=== PATIENT | male | born 1960 | race Caucasian/White ===

== ENCOUNTER 2017-02-04 21:38 | Emergency (ER) | payer BC ==
[~2017-02-04] VITALS: Ht 177.8 cm; Wt 82.6 kg
--- NOTE | 2017-02-04 22:59 | PHYS DOC ---
Adult General Chief Complaint Chief Complaint: UPPER EXTREMITY PAIN HPI HPI Patient is a 56 year old male who presents with elbow pain & swelling. He states he has several day history of painful swelling over the posterior elbow. Today he accidentally hit his arm against equipment at work & has increased pain to proximal forearm. No fevers/chills, elbow erythema/warmth/swelling. He is right handed. 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 Review of Systems Review of Systems Constitutional: Denies fever or chills HENT: Denies nasal congestion or sore throat Respiratory: Denies cough or shortness of breath Cardiovascular: Denies chest pain GI: Denies abdominal pain, nausea, vomiting Musculoskeletal: Reports elbow pain & swelling. Integument: Denies rash Neurologic: Denies headache Physical Exam Physical Exam Constitutional: Well developed, well nourished, no acute distress, non-toxic appearance. HENT: Normocephalic, atraumatic, bilateral external ears normal, oropharynx moist, nose normal. Eyes: conjunctiva normal, no discharge. Cardiovascular: no edema. Lungs & Thorax: no respiratory distress. Abdomen: nondistended. Skin: Warm, dry, no erythema, no rash. Extremities: right elbow swelling of olecranon bursa without erythema/warmth/ swelling, normal ROM to elbow with flexion & extension, no focal bony tenderness of elbow, generalized tenderness to proximal forearm without swelling /deformity, radial pulse 2+, radial/median/ulnar nerve sensory & motor function intact. Neurologic: Alert and oriented X 3 EKG EKG [] Radiology/Procedures Radiology/Procedures right elbow XR: interpreted by me: no fracture, soft tissue swelling.[] Course & Med Decision Making Course & Med Decision Making Pertinent Labs and Imaging studies reviewed. (See chart for details) The patient presents with elbow pain & swelling. Exam demonstrates olecranon bursitis. He requested XR due to injury. This was negative for fracture. Recommend rest, ice, compression with SONALI wrap, ibuprofen for pain/swelling. Follow up as needed with primary care or ortho in 1-2 weeks. Come back for neurovascular compromise, septic joint, otherwise worsening condition. Discharged home in stable condition. [] Dragon Disclaimer Dragon Disclaimer This chart was dictated in whole or in part using Voice Recognition software in a busy, high-work load, and often noisy Emergency Department environment. It may contain unintended and wholly unrecognized errors or omissions. Departure Departure: Impression: Primary Impression: Bursitis of elbow Disposition: 01 HOME, SELF-CARE Condition: STABLE Referrals: LINK VEGA APRN (PCP) [facility] Patient Instructions: Olecranon Bursitis, [id number] Additional Instructions: You were seen in the emergency department today for elbow pain & swelling. You don't have a broken bone but you do have bursitis. Please rest, ice, elevate, apply sonali wrap bandage. Take ibuprofen or tylenol for pain. Follow up with orthopedic surgery in 1 week if not improving. Come back for hot/red/swollen joint, any otherwise worsening condition. RUPAL ESTEVEZ MD Feb 04, 2017 22:59
[2017-02-04 23:20] VITALS: BP 110/79
--- NOTE | 2017-02-05 10:20 | RAD ---
Indication swelling. AP oblique and lateral views of the right elbow were obtained. An acute bony finding is not seen. A small spur is noted off the olecranon. There is soft tissue swelling over the olecranon suggesting bursitis. IMPRESSION: No acute bony finding
== END 2017-02-04 23:30 | disposition home or self-care (01) ==
LOC: ER 21:38
DX: M70.31 Other bursitis of elbow, right elbow (principal); Y93.89 Activity, other specified
CPT/HCPCS: 29125; 73080; 99284-25